=== PATIENT | male | born 1950 | race Caucasian/White ===

== ENCOUNTER → 2021-05-21 | Outpatient (REF) | payer MEDICARE, OTHER | LOC: M LAB REF 13:24 | PROVIDERS: ATTEND Internal Medicine Nephrology | DX: N18.31 Chronic kidney disease, stage 3a (principal); I12.9 Hypertensive chronic kidney disease with stage 1 through stage 4 chronic kidney disease, or unspecified chronic kidney disease ==

== ENCOUNTER → 2024-03-08 | Outpatient (CLI) | payer MEDICARE, OTHER | LOC: M PLAIMG 08:13 | PROVIDERS: ATTEND Physician Assistant | DX: R97.20 Elevated prostate specific antigen [PSA] (principal); N40.0 Benign prostatic hyperplasia without lower urinary tract symptoms; N42.89 Other specified disorders of prostate ==